=== PATIENT | female | born 1995 | race African-American/Black ===

== ENCOUNTER 2020-01-17 09:01 | Emergency (ER) | payer OTHER ==
[~2020-01-17] VITALS: Ht 180.3 cm; Wt 88.0 kg
--- NOTE | 2020-01-17 09:32 | Emergency Department Note ---
History of Present Illnes History of Present Illness Chief Complaint: Genitourinary History of Present Illness This is a 24 year old female with a history of UTI in the past, who presents with a 2 week history of frequent urination, who developed right-sided back pain over the past 2 days, that has progressively worsened and is sharp and stabbing. She's had some nausea but no vomiting, fever, or chills. She denies any dysuria or vaginal discharge. Patient states her last UTI was approximately one year ago, during her . Arrival Mode: Car Proposal Coordinator Required: No Onset (how long ago): week(s) (2) Location: right low back Quality: sharp, stabbing Radiation: Reports abdomen Severity: moderate Onset quality: sudden Duration (how long): week(s) (2) Timing of current episode: constant Progression: worsening Chronicity: new Context: Denies recent travel Relieving factors: none Exacerbating factors: none Associated symptoms: Reports denies other symptoms, Reports nausea/vomiting (nausea, without vomiting); Denies fever/chills, Denies headaches Treatments prior to arrival: none Past Medical/Family History Physician Review I have reviewed the patient's past medical and family history. Any updates have been documented here. Past Medical History Recent Fever: No Clinical Suspicion of Infectio: Yes New/Unexplained Change in Ment: No Other Surgery: Left Foot surgery Social History Smoking Cessation: Never Smoker Alcohol Use: Occasional Any Illegal Drug Use: No TB Exposure/Symptoms: No Physically hurt or threatened: No Family History Family history of heart diseas: No Other Any Pre-Existing Lines (PICC,: No Review of Systems Review of Systems Constitutional: Reports as per HPI EENTM: Reports no symptoms Cardiovascular: Reports no symptoms Gastrointestinal: Reports abdominal pain, Reports nausea, Reports vomiting; Denies diarrhea Genitourinary: Reports frequency, Reports hematuria; Denies discharge, Denies dysuria, Denies pain Musculoskeletal: Reports back pain (right low back/flank) Integumentary: Reports no symptoms Review of other systems: All other systems negative Physical Exam Related Data Allergies: Coded Allergies: aspirin (Verified Allergy, Unknown, 01/17/20) Vital signs reviewed: Yes Physical Exam CONSTITUTIONAL Constitutional: Present well-developed, Present well-nourished; Absent distressed, Absent ill appearing HENT HENT: Present normocephalic, Present atraumatic, Present oropharynx c lear/moist, Present nose normal; Absent nasal discharge, Absent rhinorrhea HENT L/R: Present left ext ear normal, Present right ext ear normal EYES Eyes: Reports PERRL, Reports conjunctivae normal NECK Neck: Present ROM normal, Present supple; Absent cervical adenopathy PULMONARY Pulmonary: Present effort normal, Present breath sounds normal CARDIOVASCULAR Cardiovascular: Present regular rhythm, Present heart sounds normal, Present capillary refill normal, Present normal rate GASTROINTESTINAL Abdominal: Present soft, Present nontender, Present bowel sounds normal GENITOURINARY Genitourinary: Present exam deferred SKIN Skin: Present warm, Present dry; Absent rash MUSCULOSKELETAL Musculoskeletal: Present ROM normal; Absent tenderness NEUROLOGICAL Neurological: Present alert, Present oriented x 3 PSYCHOLOGICAL Psychological: Present mood/affect normal, Present behavior normal Results Laboratory Laboratory UA - blo - moderate, pro - 100 mg/dl, nit - positive, jessica - small; Urine culture - sent; UPT - negative; Lab results reviewed: Yes Assessment & Plan Medical Decision Making MDM - Increase fluid intake. Recommend that you drink 8 bottles of water per day/1 gallon - Take medications as prescribed, and complete the entire course of antibiotics. - Return to the ED if you develop worsening pain, vomiting with inability to keep her medications or fluids down, or persistent symptoms despite being on antibiotics for at least 48 hours. Assessment & Plan Final Impression: (1) UTI (urinary tract infection) (2) Urinary frequency (3) Back pain Depart Disposition: HOME, SELF-[facility] Meds Active Scripts Tramadol Hcl* (ULTRAM 50MG*) 50 Mg Tab, 1-2 TAB PO Q6H PRN for pain, #20 TAB 0 Refills Prov:JHOAN EDGAR MD 01/17/20 Ondansetron (ONDANSETRON ODT) 8 Mg Tab.rapdis, 4 MG PO Q6H PRN for nausea, #20 TAB 0 Refills Prov:JHOAN EDGAR MD 01/17/20 Cefdinir (OMNICEF) 300 Mg Capsule, 300 MG PO BID for UTI for 10 Days, #20 CAP 0 Refills Prov:JHOAN EDGAR MD 01/17/20 JHOAN EDGAR MD Jan 17, 2020 09:32
[2020-01-17] MEDS ORDERED: CEFTRIAXONE SOD 1 GM VIAL IM ONE (09:45)
[2020-01-17] MEDS ORDERED: ONDANSETRON HCL 4 MG ORAL DISINTEGRATING TAB PO ONE (09:45)
[2020-01-17] MEDS ORDERED: CEFDINIR300 MG PO (09:54)
[2020-01-17] MEDS ORDERED: ONDANSETRON ODT8 MG PO (09:55)
[2020-01-17] MEDS ORDERED: ULTRAM 50MG50 MG PO (09:58)
[2020-01-17] MEDS ORDERED: ONDANSETRON HCL 4 MG ORAL DISINTEGRATING TAB ONE (10:01)
[2020-01-17] MEDS ORDERED: CEFTRIAXONE SOD 500 MG VIAL ONE (10:02)
[2020-01-17] MEDS ORDERED: CEFTRIAXONE SOD 1 GM VIAL ONE (10:04)
[2020-01-17 10:34] VITALS: BP 125/77
== END 2020-01-17 10:34 | disposition home or self-care (01) ==
LOC: FSED 09:30
DX: N39.0 Urinary tract infection, site not specified (principal); R35.0 Frequency of micturition; M54.5 Low back pain; R11.0 Nausea
CPT/HCPCS: 81003; 81025; 87086; 87186; 99283; J0696 ×2; Q0162